=== PATIENT | female | born 1960 | race Caucasian/White ===

== ENCOUNTER 2021-01-12 15:57 | Emergency (ER) | payer OTHER, MEDICAID, SELFPAY ==
[2021-01-12 16:06] VITALS: BP 109/66; PULSE 81; RESP 16; TEMP 36.6; O2SAT 95; BMI 29.2
[2021-01-12] MEDS: Lidocaine HCl 2 % MPF 5 ML VIAL INFILTRATI (16:20)
--- NOTE | 2021-01-12 16:41 | ED.SKABFB ---
HPI - Skin/Abscess/Foreign Bdy General Chief complaint: Skin/Abscess/Foreign Body Stated complaint: Abscess Time Seen by Provider: 01/12/21 16:13 Source: patient Mode of arrival: ambulatory Limitations: language barrier History of Present Illness HPI narrative: patient noticed multiple abscesses right axillary area for last 4 - 5 days getting bigger and redder and tender no fever no history of similar abscess in the past Related Data Previous Rx's Medication Instructions Recorded doxycycline hyclate 100 mg PO BID #20 tab 01/12/21 Allergies Allergy/AdvReac Type Severity Reaction Status Date / Time penicillin V Allergy Unknown rash Unverified 09/09/15 00:00 Penicillins [PENICILLINS] Allergy Unknown RASH Unverified 04/04/20 18:10 Sulfa (Sulfonamide Allergy Unknown RASH Unverified 04/04/20 18:10 Antibiotics) [SULFA (SULFONAMIDE ANTIBIOTICS)] tramadol [TRAMADOL] Allergy Unknown RASH, near Unverified 04/04/20 18:10 fainting Review of Systems Review of Systems: Yes all other systems are reviewed and are negative [facility] Social History Social History Advance Directives: No Advance Directives Information Provided: No Patient : No Physical Exam Vital Signs: Vital Signs: Last Vital Signs Temp 97.8 F 01/12/21 16:06 Pulse 81 01/12/21 16:06 Resp 16 01/12/21 16:06 BP 109/66 01/12/21 16:06 Pulse Ox 95 01/12/21 16:06 Body Mass Index 29.2 Const: General: comfortable Skin: Other: multiple small abscesses and right axillary area with surrounding erythema Procedures Abscess I/D Site: upper extremity ( axilla) Side (if applicable): right Local Anesthetic: lidocaine 2% Amount of anesthesia used (mL): 5 Technique: incised with blade Amount of fluid expressed (mL): 1 Sent for culture/gram staining?: No Packing used?: none Discharge Plan Discharge Clinical Impression: Sebaceous cyst of right axilla Patient Disposition: Home, Self-Care Instructions: Cyst (ED) Additional Instructions: take antibiotics as prescribed local care as advised Prescriptions: New doxycycline hyclate 100 mg tablet 100 mg PO BID Qty: 20 RF: 0 Print Language: [place]
== END 2021-01-12 16:46 | disposition home or self-care (01) ==
PROVIDERS: Emergency Provider Internal Medicine
DX: L02.411 Cutaneous abscess of right axilla (principal)
CPT/HCPCS: 10061; 99283; 99284